=== PATIENT | female | born 1965 | race Caucasian/White ===

== ENCOUNTER 2022-02-02 14:04 | Emergency (ER) | payer MEDICARE, MEDICAID ==
[~2022-02-02] VITALS: Ht 165.1 cm; Wt 77.1 kg
[2022-02-02 16:13] VITALS: BP 131/77
[2022-02-02] MEDS ORDERED: FLUORESCEIN SOD OPTH TEST STRIP OP ONE (16:15)
[2022-02-02] MEDS ORDERED: CIP03OS RIGHTEYE (16:30)
== END 2022-02-02 16:45 | disposition home or self-care (01) ==
LOC: ER 14:04
DX: T15.01XA Foreign body in cornea, right eye, initial encounter (principal); X58.XXXA Exposure to other specified factors, initial encounter; Y93.89 Activity, other specified; Y92.89 Other specified places as the place of occurrence of the external cause; Y99.8 Other external cause status
CPT/HCPCS: 65222